=== PATIENT | male | born 1975 ===

== ENCOUNTER 2019-08-08 21:51 | Emergency (ER) | payer OTHER ==
[~2019-08-08] VITALS: Ht 172.7 cm; Wt 83.9 kg
[2019-08-08] MEDS ORDERED: SODIUM CHLORIDE 0.9% 1000ML 1,000 ML IV SCH (22:30)
[2019-08-08] MEDS ORDERED: IOPAMIDOL 370 MG/ML 200 ML INFUS..BTL INJ ONE (22:43)
[2019-08-09] MEDS ORDERED: NORVASC10 MG PO (00:18)
[2019-08-09] MEDS ORDERED: HYDROCHLOROTHIA25 MG PO (00:18)
[2019-08-09] MEDS ORDERED: NAPROSYN500 MG PO (00:18)
--- NOTE | 2019-08-09 01:09 | Diagnostic Imaging Report ---
History: Syncope Comparison studies: None Technique: Axial images were obtained from the skull base to the vertex. Coronal and sagittal reconstructions obtained from the axial data. Dose modulation, iterative reconstruction, and/or weight based adjustment of the mA/kV was utilized to reduce the radiation dose to as low as reasonably achievable. Intravenous contrast: None Findings: Scalp/skull: No abnormalities. No fractures, blastic or lytic lesions. Extra-axial spaces: No masses. No fluid collections. Brain sulci: Appropriate for age. Ventricles: Normal in size and configuration. No hydrocephalus. Parenchyma: No abnormal densities. No masses, hemorrhage, acute or chronic cortical vascular insults. Sellar/suprasellar region: No abnormalities Craniocervical junction: Patent foramen magnum. No Chiari one malformation. Incidental findings: None. IMPRESSION: No abnormalities. Signed by: Dr. Hernesto Mcwilliams M.D. on 08/09/2019 1:06 AM
--- NOTE | 2019-08-09 01:12 | Diagnostic Imaging Report ---
History:Syncope, Comparison studies:Head CT without contrast obtained at the same time Technique: Axial images were obtained from the skull base to the vertex. Coronal and sagittal images reconstructed from the axial data. Dose modulation, iterative reconstruction, and/or weight based adjustment of the mA/kV was utilized to reduce the radiation dose to as low as reasonably achievable. Intravenous contrast: 100 cc of Omnipaque 300. Findings: Internal carotid arteries: No abnormalities. Patent from the skull base through the carotid terminus. Anterior cerebral arteries: Patent. No abnormalities. Middle cerebral arteries: Patent. No abnormalities. Vertebral arteries: Hypoplastic due to origins of the hydraulic dredge operator Otherwise no abnormalities Basilar artery: Hypoplastic due to origins of the hydraulic dredge operator. Otherwise, no abnormalities Posterior cerebral arteries: Patent. No abnormalities. 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 IMPRESSION: 1. No vascular abnormalities. 2. Specifically, no intracranial aneurysms. Signed by: Dr. Hernesto Mcwilliams M.D. on 08/09/2019 1:09 AM
== END 2019-08-09 01:40 | disposition home or self-care (01) ==
LOC: FSED 21:51
DX: R55 Syncope and collapse (principal); R11.0 Nausea; R51 Headache; R42 Dizziness and giddiness; M54.2 Cervicalgia; I10 Essential (primary) hypertension; W18.30XA Fall on same level, unspecified, initial encounter; Y99.0 Civilian activity done for income or pay
CPT/HCPCS: 70450; 70496; 80053; 81003; 85025; 93005; 99284; Q9967